=== PATIENT | female | born 1975 | race Caucasian/White ===

== ENCOUNTER → 2021-01-16 | Day surgery (SDC) | payer OTHER ==
[~2021-01-16] MED LIST: CETIRIZINE HCL10 MG PO; COLACE100 MG PO; CYCLOBENZAPRINE10 MG PO; HYDROCODON-ACE1 EAC2 PO; IBUPROFEN800 MG PO; LINZESS PO; MOBIC7.5 MG PO; RIZATRIPTAN10 MG PO
[2021-01-16 11:06] LABS: HEMOGLOBIN 14.4 gm/dl (12.3-15.3); RED BLOOD COUNT 4.72 M/UL (4.00-5.10); WHITE BLOOD COUNT 6.5 K/UL (4.5-11.0)
== END | disposition home or self-care (01) ==
LOC: OR 10:39
PROVIDERS: Obstetrics & Gynecology
DX: N93.9 Abnormal uterine and vaginal bleeding, unspecified (principal); D64.9 Anemia, unspecified; Z83.3 Family history of diabetes mellitus; Z82.49 Family history of ischemic heart disease and other diseases of the circulatory system
CPT/HCPCS: 36415; 81001; 84702; 85025; J0690; J1100; J1885; J2250; J2405; J2704; J3010; J7030; J7120